=== PATIENT | female | born 1980 | race Caucasian/White ===

== ENCOUNTER 2021-12-06 18:37 | Emergency (ER) | payer MEDICAID, OTHER ==
[~2021-12-06] VITALS: Ht 149.9 cm; Wt 63.5 kg
[~2021-12-06 18:37] MED LIST: ALB2T
[2021-12-06] MEDS ORDERED: FAMOTIDINE 20 MG TAB PO ONE (19:00)
[2021-12-06] MEDS ORDERED: LIDOCAINE VISCOUS 2% 15ML UD PO ONE (19:00)
[2021-12-06] MEDS ORDERED: ONDANSETRON ODT 4 MG TAB PO ONE (19:00)
[2021-12-06] MEDS ORDERED: ALUM & MAG HYDROX-SIMETH LIQ(MAALOX) 30 ML PO ONE (19:00)
[2021-12-06 19:55] LABS: Basophils # (auto) 0.1 10 ^3/uL (0-0.2); Eosinophils # (auto) 0.1 10 ^3/uL (0-0.8); Eosinophils % (auto) 1.5 % (0.0-7.0); Hematocrit 40.9 % (36.0-46.0); Hemoglobin 14.6 g/dL (12.2-16.2); Lymphocytes # (auto) 2.2 10 ^3/uL (0.4-5.4); Lymphocytes % (auto) 23.6 % (10.0-50.0); Mean Corpuscular Hemoglobin 31.1 pg (28.0-32.0); Mean Corpuscular Hgb Conc. 35.7 g/dL (32.0-36.0); Monocytes # (auto) 0.5 10 ^3/uL (0-1.3); Monocytes % (auto) 5.2 % (0.0-12.0); Neutrophils # (auto) 6.4 10 ^3/uL (1.6-8.6); Neutrophils % (auto) 68.7 % (37.0-80.0); Nucleated Red Blood Cells % 0.2 %; White Blood Cell 9.3 10^3/uL (4.4-10.8)
[2021-12-06 20:12] LABS: Albumin 4.2 g/dL (3.4-5.0); Magnesium 2.4 mg/dL (1.6-2.6); Potassium 3.6 mmol/L (3.5-5.1)
[2021-12-06 20:17] LABS: BUN/Creatinine Ratio 12.5; Bilirubin, Total 0.9 mg/dL (0.2-1.0); Total Protein 7.9 g/dL (6.4-8.2)
[2021-12-06 21:03] LABS: Urine Bacteria NONE SEEN /hpf (None Seen); Urine Blood Negative /uL (Negative); Urine Mucus FEW (None Seen); Urine WBC 2 /hpf (0 - 5)
[2021-12-06] MEDS ORDERED: PANT40TA2 PO (21:05)
[2021-12-06 21:15] VITALS: BP 118/79
== END 2021-12-06 21:38 | disposition home or self-care (01) ==
LOC: ER 18:41
DX: R10.13 Epigastric pain (principal); Z90.49 Acquired absence of other specified parts of digestive tract; Z79.899 Other long term (current) drug therapy; Z88.8 Allergy status to other drugs, medicaments and biological substances
CPT/HCPCS: 36415; 76705; 80053; 81001; 81025; 83690; 83735; 83880; 84484; 85025; 93005; 99285; Q0162

== ENCOUNTER 2024-06-25 20:50 | Emergency (ER) | payer MEDICAID ==
[~2024-06-25] VITALS: Ht 149.9 cm; Wt 16.1 kg
[~2024-06-25 20:50] MED LIST changes: -ALB2T; +ALBU2TAB47; +PANT40TA2 PO
[2024-06-25 21:15] VITALS: TEMP 98.4
[2024-06-26] MEDS ORDERED: AMOX875T4 PO (00:46)
[2024-06-26] MEDS ORDERED: IBUP-1456 PO (00:46)
[2024-06-26] MEDS: cefTRIAXone 1GM/50ML D5W 50 ML IV ONE (01:43)
[2024-06-26] MEDS: KETOROLAC TROMETH 30 MG/ML 1ML VIAL IV ONE (01:43)
[2024-06-26] MEDS: CLINDAMYCIN 900MG IV 50 ML IV ONE (01:44)
[2024-06-26] MEDS: TETANUS-DIPTH-ACEL PERTUSSIS 0.5ML SYR Tdap IM ONE (01:55)
[2024-06-26 02:46] VITALS: BP 116/71; PULSE 60; RESP 18; O2SAT 98
== END 2024-06-26 03:03 | disposition home or self-care (01) ==
LOC: ER 20:50
DX: L03.114 Cellulitis of left upper limb (principal); F17.210 Nicotine dependence, cigarettes, uncomplicated; Z90.49 Acquired absence of other specified parts of digestive tract; Z79.899 Other long term (current) drug therapy; Z88.8 Allergy status to other drugs, medicaments and biological substances
CPT/HCPCS: 90471; 90715; 96365; 96368; 96375; 99284; J0696; J1885; J3490